=== PATIENT | female | born 1945 | race Caucasian/White ===

== ENCOUNTER 2019-01-03 18:55 | Emergency (ER) | payer MEDICARE ==
--- NOTE | 2019-01-03 19:09 | EDM.PDOC ---
ED HPI GENERAL MEDICAL PROBLEM - General Chief Complaint: Neuro Symptoms/Deficits Stated Complaint: [facility] Time Seen by Provider: 01/03/19 19:04 Source of Information: Reports: Patient History Limitations: Reports: No Limitations - History of Present Illness INITIAL COMMENTS - FREE TEXT/NARRATIVE: 73 year old female presents to the ED per ambulance. 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 No change in speech or Lt arm weakness. No headache or nausea or vomiting. No past history of cerebrovascular accident or TIA. She is known to be hypertensive but has has been off antihypertensive medication for about one year. No known heart arrhythmias and takes no medications that would thin her blood. No recent falls or closed head injuries. Denies any troubles swallowing. Denies any pain. When the patient's daughter arrived she was able to state that she was thrown around 1820 hrs. by the patient's boss indicating that she appeared to have facial weakness some drooling dysarthria and was staggering and bumping into things. This suggests that she will indeed was having a TIA/ CVA. He got her up walking the room she did very well and states things seem to be back to normal. 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 But she does not use a cane or Gatorade. She's not fallen recently. I will therefore proceed with CT angiogram of head and neck. Plan will be to place her on aspirin 325 mg at this time and Plavix 75 mg. Onset: Today Onset Date: 01/03/19 Onset Time: 17:30 Duration: Minutes: Location: Reports: Lower Extremity, Left (Acute onset of left lower extremity weakness making it difficult to walk without holding onto objects. Off balance leg felt heavy and like a piece of lead.) Quality: Reports: Other Severity: Moderate (Left leg weakness) Improves with: Reports: None Worsens with: Reports: None Context: Reports: Other. Denies: Activity, Exercise, Lifting, Sick Contact, Trauma Associated Symptoms: Reports: No Other Symptoms. Denies: Confusion, Chest Pain , Cough, cough w sputum, Diaphoresis, Fever/Chills, Headaches, Loss of Appetite , Malaise, Nausea/Vomiting, Rash, Seizure, Shortness of Breath, Syncope, Weakness Treatments TIE BINDER: Reports: Other (see below) (None. ) - Related Data Allergies Allergy/AdvReac Type Severity Reaction Status Date / Time No Known Allergies Allergy Verified 01/03/19 19:05 Home Meds: Home Meds Aspirin [Halfprin] 81 mg PO DAILY #100 tab.ec 01/03/19 [Rx] Clopidogrel [Plavix] 75 mg PO DAILY #21 tablet 01/03/19 [Rx] Rosuvastatin [Crestor] 10 mg PO DAILY #30 tab 01/03/19 [Rx] amLODIPine Besylate [Norvasc] 10 mg PO DAILY #30 tablet 01/03/19 [Rx] Past Medical History Cardiovascular History: Reports: Hypertension ([facility] antihypertensive medication about a year ago.) Endocrine/Metabolic History: Reports: Obesity/BMI 30+ Social & Family History - Living Situation & Occupation Occupation: Employed ED ROS GENERAL - Review of Systems Review Of Systems: See Below Constitutional: Denies: Fever, Chills, Malaise, Weakness, Fatigue, Decreased Appetite, Weight Loss HEENT: Reports: Other Respiratory: Reports: No Symptoms (Supposed were glasses but does not.) Cardiovascular: Reports: No Symptoms, Blood Pressure Problem. Denies: Chest Pain, Claudication Endocrine: Reports: No Symptoms (History of hypertension not on medication for the last 1 year.), Other GI/Abdominal: Reports: No Symptoms (Patient is not diabetic.) : Reports: No Symptoms, Frequency Musculoskeletal: Reports: Joint Pain Skin: Reports: No Symptoms Neurological: Reports: No Symptoms Psychiatric: Reports: No Symptoms Hematologic/Lymphatic: Reports: No Symptoms Immunologic: Reports: No Symptoms ED EXAM, NEURO - Physical Exam Exam: See Below Exam Limited By: No Limitations General Appearance: Alert, WD/WN, No Apparent Distress, Other (Vital signs show temperature 36.0 pulse 74 and sinus respiratory 16 BP 153/83. Pulse ox 95% on room air.) Eye Exam: Bilateral Eye: Normal Fundi, Normal Inspection, PERRL Throat/Mouth: Normal Inspection, Normal Lips, Normal Teeth, Normal Oropharynx, Other Head Exam: Atraumatic, Normocephalic (Uvula is in the midline) Neck: Normal Inspection, Supple, Non-Tender, Full Range of Motion. No: Carotid Bruit, Lymphadenopathy (L), Lymphadenopathy (R) Respiratory/Chest: No Respiratory Distress, Lungs Clear, Normal Breath Sounds, No Accessory Muscle Use Cardiovascular: Normal Peripheral Pulses, Regular Rate, Rhythm, No Edema, No Gallop, No Murmur, No Rub GI/Abdominal: Normal Bowel Sounds, Soft, Non-Tender, No Organomegaly, No Abnormal Bruit, No Mass, Pelvis Stable, Other (Mildly obese.) Neurological: Alert, Normal Mood/Affect, Normal Dorsiflexion, CN II-XII Intact, Normal Plantar Flexion, Normal Reflexes, No Motor/Sensory Deficits, Oriented x 3 , Difficulty Walking, Other (Cannot demonstrate any motor power or tone weakness in the left lower extremity at rest on the bed..) DTR: 0: Achilles (R), Achilles (L), 1+: Bicep (R), Bicep (L), Patella (R), Patella (L) Extremities: Normal Inspection, Normal Range of Motion, No Pedal Edema Psychiatric: Normal Affect, Normal Mood Skin Exam: Warm, Dry, Intact, Normal Color, No Rash EKG INTERPRETATION EKG Date: 01/03/19 Time: 19:13 Rhythm: NSR Rate (Beats/Min): 70 [place]: Normal P-Wave: Present QRS: Other (There is a near Q-wave V1 and V2. Consider possible old anteroseptal myocardial infarction. There is a nonspecific intraventricular conduction delay pattern. There are Q waves in leads 3 and aVF consider old inferior wall myocardial infarction.) ST-T: Other (There is T-wave flattening V6 leads 2 and aVR and T-wave inversion in 1 and aVL nonspecific findings.) EKG Interpretation Comments: Abnormal ECG Course - Vital Signs Last Recorded V/S: Last Vital Signs Temp 36.0 C 01/03/19 19:00 Pulse 74 01/03/19 19:00 Resp 16 01/03/19 19:00 BP 150/93 H 01/03/19 21:53 Pulse Ox 95 01/03/19 19:00 - Orders/Labs/Meds Orders: Active Orders 24 hr Category Date Time Status EKG Documentation Completion [RC] STAT Care 01/03/19 19:05 Active Ang Head [CT] Stat Exams 01/03/19 19:07 Taken Ang Neck [CT] Stat Exams 01/03/19 19:08 Taken Chest 1V Frontal [CR] Stat Exams 01/03/19 19:05 Taken Labs: Laboratory Tests 01/03/19 01/03/19 01/03/19 Range/Units 19:20 19:20 19:20 WBC 6.35 (3.98-10.04) K/mm3 RBC 5.44 H (3.98-5.22) M/mm3 Hgb 14.0 (11.2-15.7) gm/dl Hct 41.7 (34.1-44.9) % MCV 76.7 L (79.4-94.8) fl MCH 25.7 (25.6-32.2) pg MCHC 33.6 (32.2-35.5) g/dl RDW Std Deviation 43.5 (36.4-46.3) fL Plt Count 168 L (182-369) K/mm3 MPV 9.9 (9.4-12.3) fl Neut % (Auto) 55.6 (34.0-71.1) % Lymph % (Auto) 26.0 (19.3-51.7) % Baxter % (Auto) 14.5 H (4.7-12.5) % Eos % (Auto) 3.6 (0.7-5.8) Baso % (Auto) 0.3 (0.1-1.2) % Neut # (Auto) 3.53 (1.56-6.13) K/mm3 Lymph # (Auto) 1.65 (1.18-3.74) K/mm3 Baxter # (Auto) 0.92 H (0.24-0.36) K/mm3 Eos # (Auto) 0.23 (0.04-0.36) K/mm3 Baso # (Auto) 0.02 (0.01-0.08) K/mm3 PT 10.9 (9.7-12.0) SECONDS INR 1.00 APTT 27 (22-31) SECONDS Sodium 141 (136-145) mEq/L Potassium 4.3 (3.5-5.1) mEq/L Chloride 108 H (98-107) mEq/L Carbon Dioxide 28 (21-32) mEq/L Anion Gap 9.3 (5-15) BUN 23 H (7-18) mg/dL Creatinine 1.0 (0.55-1.02) mg/dL Est Cr Clr Drug Dosing 47.60 mL/min Estimated GFR (MDRD) 55 (>60) mL/min BUN/Creatinine Ratio 23.0 H (14-18) Glucose 103 (83-115) mg/dL Calcium 9.7 (8.5-10.1) mg/dL Magnesium 2.0 (1.8-2.4) mg/dl Total Bilirubin 0.5 (0.2-1.0) mg/dL AST 15 (15-37) U/L ALT 18 (14-59) U/L Alkaline Phosphatase 67 (46-116) U/L Troponin I < 0.017 (0.00-0.056) ng/mL C-Reactive Protein < 0.2 (<1.0) mg/dL NT-Pro-B Natriuret Pep (0-125) pg/mL Total Protein 6.4 (6.4-8.2) g/dl Albumin 3.4 (3.4-5.0) g/dl Globulin 3.0 gm/dL Albumin/Globulin Ratio 1.1 (1-2) 01/03/19 Range/Units 19:20 WBC (3.98-10.04) K/mm3 RBC (3.98-5.22) M/mm3 Hgb (11.2-15.7) gm/dl Hct (34.1-44.9) % MCV (79.4-94.8) fl MCH (25.6-32.2) pg MCHC (32.2-35.5) g/dl RDW Std Deviation (36.4-46.3) fL Plt Count (182-369) K/mm3 MPV (9.4-12.3) fl Neut % (Auto) (34.0-71.1) % Lymph % (Auto) (19.3-51.7) % Baxter % (Auto) (4.7-12.5) % Eos % (Auto) (0.7-5.8) Baso % (Auto) (0.1-1.2) % Neut # (Auto) (1.56-6.13) K/mm3 Lymph # (Auto) (1.18-3.74) K/mm3 Baxter # (Auto) (0.24-0.36) K/mm3 Eos # (Auto) (0.04-0.36) K/mm3 Baso # (Auto) (0.01-0.08) K/mm3 PT (9.7-12.0) SECONDS INR APTT (22-31) SECONDS Sodium (136-145) mEq/L Potassium (3.5-5.1) mEq/L Chloride (98-107) mEq/L Carbon Dioxide (21-32) mEq/L Anion Gap (5-15) BUN (7-18) mg/dL Creatinine (0.55-1.02) mg/dL Est Cr Clr Drug Dosing mL/min Estimated GFR (MDRD) (>60) mL/min BUN/Creatinine Ratio (14-18) Glucose (83-115) mg/dL Calcium (8.5-10.1) mg/dL Magnesium (1.8-2.4) mg/dl Total Bilirubin (0.2-1.0) mg/dL AST (15-37) U/L ALT (14-59) U/L Alkaline Phosphatase (46-116) U/L Troponin I (0.00-0.056) ng/mL C-Reactive Protein (<1.0) mg/dL NT-Pro-B Natriuret Pep 398 H (0-125) pg/mL Total Protein (6.4-8.2) g/dl Albumin (3.4-5.0) g/dl Globulin gm/dL Albumin/Globulin Ratio (1-2) Meds: Medications Discontinued Medications Generic Name Dose Route Start Last Admin Trade Name Freq PRN Reason Stop Dose Admin Amlodipine Besylate 5 mg 01/03/19 21:43 01/03/19 21:53 Norvasc PO 01/03/19 21:44 5 mg ONETIME ONE Administration Aspirin 324 mg 01/03/19 19:50 01/03/19 20:23 Aspirin PO 01/03/19 19:51 324 mg ONETIME ONE Administration Clopidogrel Bisulfate 75 mg 01/03/19 19:50 01/03/19 21:08 Plavix PO 01/03/19 19:51 75 mg ONETIME ONE Administration Sodium Chloride 1,000 mls @ 100 mls/hr 01/03/19 19:15 01/03/19 20:04 Normal Saline IV 100 mls/hr ASDIRECTED LUCILA Administration Sodium Chloride 100 mls @ 80 mls/hr 01/03/19 19:45 01/03/19 19:54 Normal Saline IV 80 mls/hr ASDIRECTED LUCILA Administration Iopamidol 100 ml 01/03/19 19:40 01/03/19 19:54 Isovue-370 (76%) IVPUSH 01/03/19 19:41 100 ml ONETIME ONE Administration Sodium Chloride 10 ml 01/03/19 19:40 01/03/19 19:54 Saline Flush FLUSH 10 ml ONETIME PRN Administration KEEP VEIN OPEN - Radiology Interpretation Free Text/Narrative:: 73-year-old female attends the ED with sudden onset of left leg weakness while at work. 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 States left leg became like a piece of wood and felt like it was heavy. Making it difficult to walk. She did not express any discomfort or weakness in her left arm or her speech. No associated headache nausea or vomiting. No recent falls or closed head injuries. Not on any blood thinners. CT was done as she was a stroke alert. CT exam reveals mild degenerative changes in the basal ganglia compatible with small vessel ischemic change but there is no intracranial bleeding or mass effect. Diminished density is noted within the periventricular and subcortical white matter which is compatible with small vessel demyelination changes. Several old lacunar infarcts are seen within the basal ganglia. Neuro exam is grossly normal. The only abnormality is appreciated when she is up trying to walk. Plan we will proceed with CT angiogram of head and neck. - Re-Assessments/Exams Free Text/Narrative Re-Assessment/Exam: 01/03/19 20:58 Labs reveal a normal white count at 6.35 with automated neutrophil count of 55.6. Hemoglobin is 14.0 with hematocrit of 41.7. MCV is a little bit on the low side at 76.7 suggesting iron deficiency which needs further investigation. Platelet count 268,000. PT is 10.9 with an INR 1.00. PTT is 27. Sodium was 141 with a potassium of 4.3. Chloride is 108 with a bicarbonate of 20. Anion gap is normal at 9.3. The right is slightly elevated at 23 with a creatinine of 1.0. GFR is greater than 55. Glucose 103 with a calcium of 9.7. Magnesium was 2.0. Liver function is normal. Troponin I is less than 0.017. C-reactive protein less than 0.2. BNP is slightly elevated at 398. Total protein is 6.4 with an albumin fraction of 3.4. CT angiogram of the neck reveals the right common carotid artery be unremarkable with no significant stenosis dissection or occlusion. The right internal carotid artery shows calcified plaque at the origin of the right internal carotid artery producing about 25% diameter stenosis. An additional calcified plaque 5 mm downstream from the origin produces a 50% diameter stenosis. The right external carotid artery is unremarkable with no occlusion or stenosis. Right vertebral artery is unremarkable with no stenosis dissection or occlusion. On the left side the left common carotid arteries unremarkable with no stenosis dissection or occlusion. Left internal carotid artery shows calcified plaque the origin of the left internal carotid artery producing about a 30% diameter stenosis. The vessel downstream from this point is widely patent and free of dissection aneurysm or stenosis. Left external carotid arteries unremarkable with no occlusion stenosis. Left vertebral arteries unremarkable with no stenosis and stenosis or dissection or occlusion. The neck shows moderate cervical degenerative disc disease and spondylosis. ET angiogram of the head reveals the right internal carotid artery to be unremarkable. The intracranial segment is patent with no significant stenosis or aneurysm. The right anterior cerebral arteries unremarkable with no occlusion or significant stenosis or aneurysm. Right middle cerebral artery there is mild atheromatous? Irregularity of the M1 segment of the right middle cerebral artery with a moderate area of approximately 50% diameter stenosis at its origin. The right posterior cerebral artery is unremarkable with no occlusion or significant stenosis the right vertebral artery circumflex artery is also within normal limits showing no aneurysm or stenosis. On the left side left internal carotid artery unremarkable intracranial segment is patent with no significant stenosis or aneurysm. The left anterior cerebral artery there is a high-grade stenosis of the left anterior cerebral artery 5 cm downstream from its origin. The vessel is not occluded. The upstream and downstream segments appear widely patent. The left middle cerebral artery demonstrates atheromatous irregularity of the M1 segment with significant stenosis. The remainder the vessel appears unremarkable. Left posterior cerebral arteries unremarkable with no occlusion or significant stenosis or aneurysm. Left vertebral artery is unremarkable. The basilar artery is unremarkable with no occlusion or stenosis. There is bilateral patent posterior communicating arteries. 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 Moderate stenosis of the right middle cerebral artery at its origin with no sign of occlusion. I therefore did speak with Dr. Alegre--emissions inspector neurologist at [facility] and he agreed with my course of treatment if the patient is asymptomatic which she is on repeat examinations up walking in the bragg and I reevaluated the strength in her left upper extremity and lower extremity I could find no neurological deficit. Therefore treated with baby aspirin and Plavix 75 mg daily for the next 3 weeks I also started her on Crestor 10 mg daily and because her blood pressure is elevated around 155 -165 systolic placed her on Norvasc 10 mg daily. I gave her 5 mg in the ED. She' ll be going home in the care of her granddaughter. They will return if any further problems occur. Departure - Departure Time of Disposition: 21:43 Disposition: Home, Self-Care 01 Condition: Fair Clinical Impression: TIA involving right internal carotid artery, Uncontrolled hypertension - Discharge Information *PRESCRIPTION DRUG MONITORING PROGRAM REVIEWED*: Not Applicable *COPY OF PRESCRIPTION DRUG MONITORING REPORT IN PATIENT TRISHA: Not Applicable Prescriptions: amLODIPine Besylate [Norvasc] 10 mg PO DAILY #30 tablet Aspirin [Halfprin] 81 mg PO DAILY #100 tab.ec Clopidogrel [Plavix] 75 mg PO DAILY #21 tablet Rosuvastatin [Crestor] 10 mg PO DAILY #30 tab Instructions: Transient Ischemic Attack, [id number] Referrals: PCP,Unknown [Primary Care Provider] - Forms: ED Department Discharge, ED Return to Work/School Form Additional Instructions: Evaluation the emergency room today in regards to signs and symptoms of stroke. Apparently her dealership manager appreciated that you have right facial drooping some dysarthria or impaired speech or trouble speaking. Some left arm and left leg weakness that occurred suddenly while at work at about 1730 hrs. tonight. She did turn called her daughter who in turn picked you up and brought to the hospital for evaluation. Initial evaluation the emergency room revealed no obvious neurological deficit. Even walking at the bedside was pretty normal. CT scan done immediately of your head per stroke protocol was negative for any intracranial bleeding or obvious mass effect or tumor. We therefore proceeded with CT angiogram which is where we put dye in the arteries of your head and neck to look for any blockages. Are normal blockages in the arteries supplying your brain and neck appropriate for your age but nothing that was occlusive or causing lack of blood supply to the brain at this time. Therefore you have suffered a transient ischemic attack most likely from debris or cholesterol plaque breaking off from inside of the artery in your neck on the right side causing her current symptom complex. Symptoms seem to have resolved for the most part and therefore treatment is baby aspirin once daily for the rest of your life. Plavix 75 mg once daily for 21 days with the next tablet twice a day suppertime tomorrow. Postop was provided in the ED. This is to allow the artery to heal on the inside for the next 3 weeks. And prevent a major stroke from occurring. Blood pressure does remain mild to moderately elevated and therefore you do need blood pressure control as this is the major cause of stroke. Suggest Norvasc 10 mg once daily. This can be taken at a time of the day. Also medication Crestor 10 mils grams once daily to lower your cholesterol and help prevent hardening of the arteries which causes further stroke recurrences. Suggest follow-up with Dr. Faith client delivery specialist here in our hospital. Works on the third floor of the [place] [facility] the [facility]. Please make an appointment to see him within the next 10 days. Please phone [phone] to arrange an appointment. Return to the ED if any similar problems occur again Off work for the next 2 days due to TIA as it will make you feel very tired for the next couple of days. - My Orders Last 24 Hours: My Active Orders 01/03/19 19:05 EKG Documentation Completion [RC] STAT Chest 1V Frontal [CR] Stat 01/03/19 19:07 Ang Head [CT] Stat 01/03/19 19:08 Ang Neck [CT] Stat - Assessment/Plan Last 24 Hours: My Active Orders 01/03/19 19:05 EKG Documentation Completion [RC] STAT Chest 1V Frontal [CR] Stat 01/03/19 19:07 Ang Head [CT] Stat 01/03/19 19:08 Ang Neck [CT] Stat
[2019-01-03] MEDS ORDERED: Sodium Chloride 0.9% 1,000 ML IV SCH (19:15)
--- NOTE | 2019-01-03 19:17 | CT ---
Head CT Technique: Multiple axial sections through the brain were obtained. Intravenous contrast was not utilized. Comparison: No previous intracranial imaging is available. Findings: Ventricles along with basal cisterns and sulci over convexities are mildly prominent. Diminished density is noted within the periventricular and subcortical white matter which is compatible with small vessel ischemic demyelination change. Several old lacunar infarcts are seen within the basal ganglia. No other abnormal parenchymal densities are seen. No evidence of intracranial hemorrhage. No midline shift or mass effect is seen. Bone window settings were reviewed which shows the visualized mastoid sinuses to appear clear. Paranasal sinuses that are seen appear without acute abnormality. No acute calvarial finding is seen. Impression: 1. Senescent change as noted above. Nothing acute is appreciated on noncontrast head CT exam. Diagnostic code #2
[2019-01-03] MEDS ORDERED: Iopamidol 755 Mg/ML 100 ML Bottle IVPUSH ONE (19:40)
[2019-01-03] MEDS ORDERED: Sodium Chloride 0.9% 10 ML Syringe FLUSH PRN (19:40)
[2019-01-03] MEDS ORDERED: Sodium Chloride 0.9% 100 ML IV SCH (19:45)
[2019-01-03] MEDS ORDERED: Clopidogrel 75 MG Tab PO ONE (19:50)
[2019-01-03] MEDS ORDERED: Aspirin 81 MG Tab.Chew PO ONE (19:50)
[2019-01-03] MEDS ORDERED: amLODIPine 5 MG Tab PO ONE (21:43)
--- NOTE | 2019-01-04 06:54 | CR ---
Chest: Portable view of the chest was obtained. Comparison: No prior chest imaging. Heart size is slightly prominent. Tortuous thoracic aorta is seen. Lungs are clear with no acute parenchymal change. Bony structures are grossly intact. Impression: 1. Nothing acute is seen on portable chest x-ray. Diagnostic code #2
--- NOTE | 2019-01-04 06:59 | CT ---
CT angiogram of neck Technique: Multiple axial sections through the neck were obtained. Intravenous contrast was utilized. Study performed as a CT neck angiogram protocol. Findings: Both vertebral arteries are patent into the basilar artery without focal stenosis or dissection. Common carotid arteries are tortuous and show atherosclerotic irregularity without focal stenosis. Atherosclerotic change most prominent within the carotid bulb and origin of the internal carotid arteries. Slight narrowing of the left ICA origin is seen which is felt to be of no hemodynamic significant consequence. Minimal areas of stenosis are also seen within the right internal carotid artery which are not hemodynamically significant. Internal carotid arteries are otherwise patent into the middle and anterior cerebral arteries. Impression: 1. Mild areas of stenosis as noted above and atherosclerotic irregularity. These areas of stenosis are felt not to be hemodynamically significant. Diagnostic code #2 I agree with preliminary report from [facility], finalized on 01/03/19, 9:44 PM Central Time
--- NOTE | 2019-01-04 06:59 | CT ---
CT angiogram of brain Technique: Multiple axial sections through the brain were obtained. Intravenous contrast was utilized. Study performed as a CT angiogram protocol. Findings: Focal stenosis appears to be present within the distal aspect of the anterior left cerebral artery. Anterior cerebral arteries are otherwise within normal limits. Mild stenosis noted within the mid right middle cerebral artery. Atherosclerotic irregularity is noted within the left middle cerebral artery. Focal area of stenosis noted within the proximal right posterior cerebral artery. Diffuse atherosclerotic irregularity seen within the left posterior cerebral artery. Other intracranial arteries that are seen show no definite stenosis. No focal areas of occlusion are seen. No discrete aneurysm is appreciated. Impression: 1. Atherosclerotic irregularity and focal areas of stenosis within the left anterior cerebral artery, mid right middle cerebral artery and proximal right posterior cerebral artery. Diagnostic code #3 I agree with preliminary report from [facility], finalized on 01/03/19, 9:54 PM Central Time
== END 2019-01-03 22:00 | disposition home or self-care (01) ==
LOC: JD.ED 18:55
DX: I65.21 Occlusion and stenosis of right carotid artery (principal); I10 Essential (primary) hypertension; E66.9 Obesity, unspecified; Z68.32 Body mass index [BMI] 32.0-32.9, adult; Z79.82 Long term (current) use of aspirin; Z79.02 Long term (current) use of antithrombotics/antiplatelets
CPT/HCPCS: 36415; 70450; 70496; 70498; 71045; 80053; 82465; 83718; 83721; 83735; 83880; 84484; 85025; 85610; 85730; 86140; 93005; 96360; 99285; A9270; J7030; J7040; Q9967; 93010

== ENCOUNTER 2019-01-04 00:25 | Emergency (ER) | payer MEDICARE ==
--- NOTE | 2019-01-04 00:34 | EDM.PDOC ---
ED HPI GENERAL MEDICAL PROBLEM - General Chief Complaint: Neuro Symptoms/Deficits Stated Complaint: [facility] Time Seen by Provider: 01/04/19 00:29 Source of Information: Reports: Patient, EMS History Limitations: Reports: No Limitations - History of Present Illness INITIAL COMMENTS - FREE TEXT/NARRATIVE: 73-year-old female returns to the ED after I discharged her home earlier this evening after she suffered an apparent TIA while in the workplace. Patient had developed left-sided weakness and perhaps right-sided facial weakness and was bumping into things and off balance while in the workplace noted by her business analytics manager around 1800 hrs. Patient states symptoms started about 1730 hrs. suddenly. 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 The business analytics manager appreciated her deficits and called her granddaughter to come pick her up and she did show up in the ED around 1900 hrs. At that time I could not document any neurological deficit. Even standing and walking at the bedside she showed no sign of weakness in her lower extremity which was her chief complaint. Her speech was normal was noted that no dysarthria and coronary nerves II through XII are normal. Immediate CT of the head was done as part of a stroke alert. It reveals several old lacunar infarcts in the basal ganglia but no intracranial bleeding or mass effect. I then went ahead and did perform a CT angiogram of her head and neck. Associated with no critical stenosis or obstruction of any of the arteries in her head or neck. It did reveal mild left thrombosis irregularity of the M1 segment of the right middle cerebral artery with a moderate area of approximately 50% diameter stenosis at its origin. It revealed a high-grade stenosis of the left anterior cerebral artery 5 cm downstream from its origin the remainder the vessels patent and enhances normally. There was no obvious obstruction at this level. She was monitored in the ED for another couple of hours. Her blood pressure did remain persistently high with a systolic of 155- 165/85-95. Patient used to take blood pressure medication was been off for the last year. Smoking over 50 years ago. We tested her and walked her in the hallway on 3 different occasions and she seemed to have no significant deficit. I had spoke with Dr. Alegre on-call neurologist at [facility] in [place] and he agreed with treatment for TIA with baby aspirin and she had received 324 mg chewed and Plavix 75 mg by mouth in the ED. left the ED at 2200 hrs. last evening. Apparently she got up to use the toilet after going to bed tonight and missed the toilet falling to the floor. It is quite apparent that she is ignoring the left side of her body. She is not showing any significant cranial nerve abnormalities but her speech is dysarthric. She denies any headache nausea or vomiting. A definite weakness of her left upper extremity and left lower extremity with inability to barely lift the the left leg off the gurney i.e. grade 1 out of 5 motor power and tone in the leg and 3 out of 5 in the left upper extremity. She therefore is appears to gone onto a completed CVA. The symptoms seem to be waxing and waning or so-called stuttering stroke. Plan will be repeat CT of her head him emergently to see if there is any intracranial change or bleeding. This will decide whether thrombolytics are required or heparinization. I would ask discuss case with on-call neurology in [place] in [place]. Onset: Today Onset Date: 01/04/19 Onset Time: 00:00 Duration: Minutes: Location: Reports: Upper Extremity, Left, Lower Extremity, Left (Weakness left lower extremity left upper extremity), Other (She is ignoring the left side of her body.) Quality: Reports: Other (Symptoms are now much worse than they were when I examined her 5hours previously.) Severity: Moderate Improves with: Reports: None Worsens with: Reports: None Context: Reports: Other (Strokelike symptoms.). Denies: Activity, Exercise, Lifting, Sick Contact Associated Symptoms: Reports: Other (Mild dysarthria.). Denies: Confusion, Chest Pain, cough w sputum, Diaphoresis, Nausea/Vomiting - Related Data Allergies Allergy/AdvReac Type Severity Reaction Status Date / Time No Known Allergies Allergy Verified 01/04/19 00:26 Home Meds: Home Meds Aspirin [Halfprin] 81 mg PO DAILY #100 tab.ec 01/03/19 [Rx] Clopidogrel [Plavix] 75 mg PO DAILY #21 tablet 01/03/19 [Rx] Rosuvastatin [Crestor] 10 mg PO DAILY #30 tab 01/03/19 [Rx] amLODIPine Besylate [Norvasc] 10 mg PO DAILY #30 tablet 01/03/19 [Rx] Past Medical History HEENT History: Reports: Impaired Vision Cardiovascular History: Reports: Hypertension ([facility] antihypertensive medication about a year ago.) Respiratory History: Reports: Pneumonia, Recurrent Gastrointestinal History: Reports: None Genitourinary History: Reports: None TRANSIT PLANNER History: Reports: None Musculoskeletal History: Reports: Back Pain, Chronic Neurological History: Reports: Migraines Psychiatric History: Reports: None Endocrine/Metabolic History: Reports: Obesity/BMI 30+ Hematologic History: Reports: None Immunologic History: Reports: None Oncologic (Cancer) History: Reports: None Dermatologic History: Reports: None - Infectious Disease History Infectious Disease History: Reports: None - Past Surgical History Head Surgeries/Procedures: Reports: None HEENT Surgical History: Reports: Oral Surgery, Tonsillectomy Social & Family History - Caffeine Use Caffeine Use: Reports: Coffee, Soda - Living Situation & Occupation Occupation: Employed ED ROS GENERAL - Review of Systems Review Of Systems: See Below Constitutional: Reports: Malaise, Weakness (Left upper extremity left lower extremity with mild dysarthria.). Denies: Fever, Chills HEENT: Reports: Other (Mildly dysarthric.) Respiratory: Reports: No Symptoms Cardiovascular: Reports: No Symptoms Endocrine: Reports: No Symptoms GI/Abdominal: Reports: No Symptoms : Reports: No Symptoms Skin: Reports: No Symptoms Neurological: Reports: Weakness (Left arm weakness left leg weakness with mild dysarthria. I.e. left hemiparesis due to right) Psychiatric: Reports: No Symptoms ( middle cerebral artery occlusion.) Hematologic/Lymphatic: Reports: No Symptoms Immunologic: Reports: No Symptoms ED EXAM, NEURO - Physical Exam Exam: See Below Exam Limited By: Other General Appearance: Alert (Speech is mildly dysarthric.), WD/WN, Mild Distress, Other (She is ignoring the left side of her body looking only to the right side. ) Eye Exam: Bilateral Eye: Normal Inspection (No gaze palsy.) Throat/Mouth: Normal Inspection, Normal Lips, Normal Oropharynx, Other (Normal movement of her tongue.) Head Exam: Atraumatic, Normocephalic Neck: Normal Inspection, Supple, Non-Tender, Full Range of Motion. No: Carotid Bruit, Lymphadenopathy (L), Lymphadenopathy (R) Respiratory/Chest: No Respiratory Distress, Lungs Clear, Normal Breath Sounds, No Accessory Muscle Use Cardiovascular: Normal Peripheral Pulses, Regular Rate, Rhythm, No Edema, No Gallop, No Murmur, No Rub GI/Abdominal: Normal Bowel Sounds, Soft, Non-Tender, No Organomegaly, No Abnormal Bruit, No Mass, Pelvis Stable, Other (Moderately obese.) Neurological: Alert, CN II-XII Intact, Oriented x 3, Babinski (Equivocal.), Other (Patient has significant weakness of the left lower extremity barely able to lift it off the gurney i.e. rated as 1 out of 5 motor power tone. Reflexes are absent in this extremity. She has grade 3 out of 5 motor power and tone in her upper extremity with good folder hand strength weaker than it was prior and weakness in the biceps and flexors. He is unable to perform finger to nose exam on the left side now whereas before she can do this easily. She can also not perform rapid alternating movements on the left side.) DTR: 0: Bicep (L), Patella (L), Achilles (R), Achilles (L), 1+: Bicep (R), Patella (R) Extremities: Normal Inspection, Normal Range of Motion, Other (Patient has evidence of osteophytic changes in both knees.) Psychiatric: Normal Affect, Normal Mood, Other Skin Exam: Warm, Dry (Speech is mildly dysarthric.), Intact, Normal Color, No Rash Course - Vital Signs Last Recorded V/S: Last Vital Signs Temp 36.9 C 01/04/19 00:26 Pulse 72 01/04/19 00:26 Resp 16 01/04/19 00:26 BP 144/79 H 01/04/19 00:26 Pulse Ox 95 01/04/19 00:26 - Orders/Labs/Meds Orders: Active Orders 24 hr Category Date Time Status Head wo Cont [CT] Stat Exams 01/04/19 00:28 Taken Sodium Chloride 0.9% [Normal Saline] 1,000 ml Med 01/04/19 00:45 Active IV ASDIRECTED Medication Orders Sodium Chloride (Normal Saline) 1,000 mls @ 100 mls/hr IV ASDIRECTED LUCILA Last Admin: 01/04/19 00:49 Dose: 100 mls/hr Meds: Medications Generic Name Dose Route Start Last Admin Trade Name Freq PRN Reason Stop Dose Admin Sodium Chloride 1,000 mls @ 100 mls/hr 01/04/19 00:45 01/04/19 00:49 Normal Saline IV 100 mls/hr ASDIRECTED LUCILA Administration Discontinued Medications Generic Name Dose Route Start Last Admin Trade Name Jovany PRN Reason Stop Dose Admin Alteplase, Recombinant Confirm 01/04/19 01:08 01/04/19 01:17 Activase Administered 01/04/19 01:09 Not Given Dose 100 mg .ROUTE .[employer] Alteplase, Recombinant 81.6462 mg 01/04/19 01:16 01/04/19 01:24 Activase 0.9 mg/kg (81.6462 mg) 01/04/19 01:17 81.6462 mg IV Administration .BOLUS ONE - Radiology Interpretation Free Text/Narrative:: 73-year-old female returns to the ED after getting up from bed tonight to get to the bathroom. She states she missed the toilet and fell to the floor and was unable to get up. She has definite left-sided arm and leg weakness much worse than when I have reviewed her This 73-year-old female returns to the ED after discharge from the ED 3 hours ago. She had presented at 1900 hrs. with reported dysarthria right facial weakness and trouble walking due to left leg not working well. Complete neuro exam at that time could not identify any obvious deficits and she could stand by the bedside and walk without any problem. The CT of her brain revealed some old lacunar infarcts in the basal ganglia but no sign of intracranial bleeding or mass effect. She was mildly hypertensive as she's been off her antihypertensive medications for over a year. Appears that she is starting to show signs of a completed stroke versus TIA. She had had CT angiogram of her head and neck which showed a stenotic area in the right middle cerebral artery but no occlusion. Plan repeat CT of the head to make sure there is no intracranial bleeding and then discuss with neurologist about proceeding with thrombolytics versus heparin therapy. Current NIH scale is 11. - Re-Assessments/Exams Free Text/Narrative Re-Assessment/Exam: 01/04/19 01:00: Spoke to the patient and her granddaughter about the risks of thrombolytic therapy there willing to take this risk. She has no contraindications other than she did receive Plavix and aspirin 6 hours prior. There is an increased risk of potential bleeding into the brain. However the benefits are felt to be better than the risk. We'll proceed with 81 mg total dose of alteplase IV given 8 mg IV bolus and 73 mg IV over the ensuing hour. This is per stroke protocol. I spoke with Dr. Stroud-- sheet rocker at [facility] and he is accepted care to the intensive care unit. Tentatively the patient be transported to that facility per ground ambulance. 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 A Snider catheter has been placed to your metric drainage. Repeat neurologic exam reveals she is able to lift her leg up off the gurney without any problem whatsoever. Her motor power and tone is now 4 out of 5 in the left lower extremity and 5 out of 5 in the left upper extremity. She no longer has a ignorance of her left side she is alert oriented with no dysarthria. Denies any headache. - My Orders Last 24 Hours: My Active Orders 01/04/19 00:28 Head wo Cont [CT] Stat 01/04/19 00:45 Sodium Chloride 0.9% [Normal Saline] 1,000 ml IV ASDIRECTED - Assessment/Plan Last 24 Hours: My Active Orders 01/04/19 00:28 Head wo Cont [CT] Stat 01/04/19 00:45 Sodium Chloride 0.9% [Normal Saline] 1,000 ml IV ASDIRECTED
[2019-01-04] MEDS ORDERED: Sodium Chloride 0.9% 1,000 ML IV SCH (00:45)
[2019-01-04] MEDS ORDERED: Tenecteplase 50 MG Kit IV STA (01:04)
--- NOTE | 2019-01-04 07:08 | CT ---
Head CT Technique: Multiple axial sections through the brain were obtained. Intravenous contrast was not utilized. Comparison: Prior head CT exam of 01/03/19. Findings: Ventricles along with basal cisterns and sulci over the convexities are mildly prominent. Diminished density is noted within portions of the periventricular and subcortical white matter which is compatible with small vessel ischemic demyelination change. Several old lacunar infarcts are noted within the basal ganglia. No other abnormal parenchymal densities are seen. No evidence of intracranial hemorrhage. No midline shift or mass effect is seen. Bone window settings were reviewed which show no acute calvarial abnormality. Visualized mastoid and paranasal sinuses show nothing acute. Impression: 1. Senescent change as noted above. 2. Nothing acute is definitely appreciated. MRI study with diffusion could be considered to further evaluate for ischemic event if clinically indicated. Diagnostic code #2 I agree with preliminary report from [facility], finalized on 01/04/19, 1:56 AM Central Time
== END 2019-01-04 02:00 ==
LOC: JD.ED 00:25
DX: I63.311 Cerebral infarction due to thrombosis of right middle cerebral artery (principal); I69.322 Dysarthria following cerebral infarction; I10 Essential (primary) hypertension; Z79.82 Long term (current) use of aspirin; Z79.01 Long term (current) use of anticoagulants; Z79.899 Other long term (current) drug therapy
CPT/HCPCS: 51702; 70450; 96361; 96374; 99285; J2997; J7040

== ENCOUNTER 2020-05-13 18:32 | Emergency (ER) | payer MEDICARE ==
--- NOTE | 2020-05-13 19:21 | EDM.PDOC ---
ED HPI GENERAL MEDICAL PROBLEM - General Chief Complaint: Upper Extremity Injury/Pain Stated Complaint: DISLOCATED LEFT SHOULDER Time Seen by Provider: 05/13/20 19:01 Source of Information: Reports: Patient History Limitations: Reports: No Limitations - History of Present Illness INITIAL COMMENTS - FREE TEXT/NARRATIVE: Mrs. Weiss is a very pleasant 75-year-old woman who now presents to the ED with a possible left shoulder dislocation. She states that she tripped on her carpet at home around 17:30, falling onto an outstretched left upper extremity. She states that her pain is not that severe, but she is unable to move her left shoulder, and that her symptoms are the same as when she dislocated her shoulder once previously, in 2017 or 2018. She denies any other injuries besides the shoulder. The patient did not take any [id number] or home remedies prior to coming to the ED. Her last oral intake was around 11:30 or noon today. Here in the ED, the patient's initial BP is found to be elevated at 167/97, otherwise, she is hemodynamically stable, afebrile, saturating 99% on room air. Prior to this evening's shoulder injury, the patient denies having a recent fever, chills, sore throat, ear pain, nasal or sinus congestion, cough, dyspnea, chest pain, palpitations, nausea, vomiting, constipation, diarrhea, abdominal pain, urinary symptoms, recent weight gain or weight loss, recent bloody bowel movements or black bowel movements, recent joint aches, headaches, or rashes. The patient's PCP is Dr. Beatriz Alejandra. She has not received an influenza vaccine this season, and declined an offer to get one here in the ED. Left Shoulder Pain Score (Numeric/FACES): 9 - Related Data Allergies Allergy/AdvReac Type Severity Reaction Status Date / Time No Known Allergies Allergy Verified 05/13/20 18:46 Home Meds: Home Meds Aspirin [Halfprin] 81 mg PO DAILY #100 tab.ec 01/03/19 [Rx] Clopidogrel [Plavix] 75 mg PO DAILY #21 tablet 01/03/19 [Rx] Rosuvastatin [Crestor] 10 mg PO DAILY #30 tab 01/03/19 [Rx] amLODIPine Besylate [Norvasc] 10 mg PO DAILY #30 tablet 01/03/19 [Rx] Past Medical History HEENT History: Reports: Impaired Vision Cardiovascular History: Reports: Hypertension Genitourinary History: Reports: Urinary Incontinence (stress incontinence) Neurological History: Reports: TIA (2019) Endocrine/Metabolic History: Reports: Obesity/BMI 30+ - Past Surgical History HEENT Surgical History: Reports: Adenoidectomy, Oral Surgery (dental extractions), Tonsillectomy Female Surgical History: Reports: D&C (x 1) Social & Family History - Tobacco Use Tobacco Use Status *Q: Never Tobacco User - Caffeine Use Caffeine Use: Reports: None - Alcohol Use Alcohol Use History: Yes Alcohol Use Frequency: Rarely - Recreational Drug Use Recreational Drug Use: No - Living Situation & Occupation Living situation: Reports: , Alone Occupation: Employed ([employer]) Review of Systems - Review of Systems Review Of Systems: Comprehensive ROS is negative, except as noted in HPI. ED EXAM, GENERAL - Physical Exam Exam: See Below Exam Limited By: No Limitations General Appearance: Alert, WD/WN, No Apparent Distress Extremities: Other (The left shoulder is somewhat squared off compared to the right. No prominent acromion seen or felt on the left, when compared to the right, however, there is loss of a palpable acromion posteriorly. The patient denies tingling or numbness to the left upper extremity, specifically, to the deltoid region; neurovascular status of the left upper extremity is intact.) Course - Vital Signs Last Recorded V/S: Last Vital Signs Temp 36.6 C 05/13/20 18:44 Pulse 73 05/13/20 18:44 Resp 16 05/13/20 18:44 BP 167/97 H 05/13/20 18:44 Pulse Ox 99 05/13/20 18:44 - Orders/Labs/Meds Orders: Active Orders 24 hr Category Date Time Status Shoulder Comp Lt [CR] Stat Exams 05/13/20 19:14 Taken Shoulder Comp Lt [CR] Stat Exams 05/13/20 21:07 Taken Sodium Chloride 0.9% [Normal Saline] 1,000 ml Med 05/13/20 20:30 Active IV ASDIRECTED Medication Orders Sodium Chloride (Normal Saline) 1,000 mls @ 150 mls/hr IV ASDIRECTED LUCILA Last Admin: 05/13/20 20:28 Dose: 150 mls/hr Documented by: [id number] Meds: Medications Generic Name Dose Route Start Last Admin Trade Name Jovany PRN Reason Stop Dose Admin Sodium Chloride 1,000 mls @ 150 mls/hr 05/13/20 20:30 05/13/20 20:28 Normal Saline IV 150 mls/hr ASDIRECTED LUCILA Administration Discontinued Medications Generic Name Dose Route Start Last Admin Trade Name Jovany PRN Reason Stop Dose Admin Hydromorphone HCl 1 mg 05/13/20 20:18 05/13/20 20:29 Dilaudid IVPUSH 05/13/20 20:19 1 mg ONETIME ONE Administration Midazolam HCl Confirm 05/13/20 20:56 Versed 1 Mg/Ml Administered 05/13/20 20:57 Dose 2 mg .ROUTE .STK-MED ONE Ondansetron HCl 4 mg 05/13/20 20:18 05/13/20 20:29 Zofran IVPUSH 05/13/20 20:19 4 mg ONETIME ONE Administration Propofol Confirm 05/13/20 20:56 Diprivan 20 Ml Administered 05/13/20 20:57 Dose 200 mg .ROUTE .STK-MED ONE - Re-Assessments/Exams Free Text/Narrative Re-Assessment/Exam: 05/13/20 19:17 As above, the patient likely dislocated her left shoulder. I have ordered x- rays to evaluate. If confirmed, Vanessa JANE will place an IV and we will call anesthesia. The patient declined an offer for pain medication at this time. 05/13/20 20:18 3-view radiographs of the left shoulder confirms an anterior dislocation. No Hill-Sachs fracture identified. Formal read per the Radiologist pending. 05/13/20 21:06 The patient was given conscious sedation per the ACTIONSCRIPT DEVELOPER - please see his note for specifics. Once the patient was adequately anesthetized, the patient's left shoulder was reduced using the traction/countertraction method, without difficulty. The patient tolerated the procedure well. Vanessa JANE will place the patient's left upper extremity into a sling and swath. I will order a post- reduction x-ray of the shoulder. 05/13/20 21:30 Post-reduction 2-view radiographs of the left shoulder appear to demonstrate complete reduction with no Hill-Sachs deformity noted. Formal read per the Radiologist pending. The patient will be discharged home once she is fully awake. 05/13/20 22:34 The patient is now well awake and ready to go home. Departure - Departure Time of Disposition: 22:34 Disposition: Home, Self-Care 01 Condition: Good Clinical Impression: Dislocation of left shoulder joint - Discharge Information *PRESCRIPTION DRUG MONITORING PROGRAM REVIEWED*: Not Applicable *COPY OF PRESCRIPTION DRUG MONITORING REPORT IN PATIENT TRISHA: Not Applicable Referrals: Beatriz Alejandra MD [Primary Care Provider] - Shahab Rayo MD [Physician] - Forms: ED Department Discharge Additional Instructions: You were seen in the emergency room after tripping, falling, and dislocating your left shoulder. Your shoulder was reduced (put back into place) under conscious sedation in the ER. Your left arm has been placed into a sling and swath. We recommend that you keep your left arm in this for the next 2 to 3 days. You may take [id number] Tylenol or ibuprofen as needed for discomfort. You may also ice your left shoulder. We recommend that you contact the office of the Orthopedic Surgeon Dr. Shahab Rayo first thing tomorrow morning, to arrange to be seen this week. If any other problems, please do not hesitate to return to the ER. Sepsis Event Note (ED) - Evaluation Sepsis Screening Result: No Definite Risk - Focused Exam Vital Signs: Vital Signs Temp Pulse Resp BP Pulse Ox 05/13/20 18:44 36.6 C 73 16 167/97 H 99 - My Orders Last 24 Hours: My Active Orders 05/13/20 19:14 Shoulder Comp Lt [CR] Stat 05/13/20 20:30 Sodium Chloride 0.9% [Normal Saline] 1,000 ml IV ASDIRECTED 05/13/20 21:07 Shoulder Comp Lt [CR] Stat - Assessment/Plan Last 24 Hours: My Active Orders 05/13/20 19:14 Shoulder Comp Lt [CR] Stat 05/13/20 20:30 Sodium Chloride 0.9% [Normal Saline] 1,000 ml IV ASDIRECTED 05/13/20 21:07 Shoulder Comp Lt [CR] Stat
[2020-05-13] MEDS ORDERED: HYDROmorphone 1 MG/ML Syringe IVPUSH ONE (20:18)
[2020-05-13] MEDS ORDERED: Ondansetron 4 MG/2 ML SDV IVPUSH ONE (20:18)
[2020-05-13] MEDS ORDERED: Sodium Chloride 0.9% 1,000 ML IV SCH (20:30)
--- NOTE | 2020-05-13 20:52 | PCM.PREANE ---
Preanesthetic Assessment - Anesthesia/Transfusion/Family Hx Anesthesia History: Prior Anesthesia Without Reaction Family History of Anesthesia Reaction: No Transfusion History: No Prior Transfusion(s) - Review of Systems General: No Symptoms Pulmonary: No Symptoms Cardiovascular: No Symptoms Gastrointestinal: No Symptoms Neurological: Other (TIA) Other: Reports: Neck Pain - Physical Assessment NPO Status Date: 05/13/20 NPO Status Time: 13:00 Vital Signs: Last Vital Signs Temp 36.6 C 05/13/20 18:44 Pulse 73 05/13/20 18:44 Resp 16 05/13/20 18:44 BP 167/97 H 05/13/20 18:44 Pulse Ox 99 05/13/20 18:44 Height: 1.65 m Weight: 94.665 kg ASA Class: 2 Mental Status: Alert & Oriented x3 Airway Class: Mallampati = 1 Dentition: Reports: [place](s) Thyro-Mental Finger Breadths: 3 Mouth Opening Finger Breadths: 3 ROM/Head Extension: Full Lungs: Clear to Auscultation, Normal Respiratory Effort Cardiovascular: Regular Rate, Regular Rhythm - Allergies Allergies/Adverse Reactions: Allergies Allergy/AdvReac Type Severity Reaction Status Date / Time No Known Allergies Allergy Verified 05/13/20 18:46 - Blood Blood Available: No Product(s) Available: None - Anesthesia Plan Pre-Op Medication Ordered: None - Acknowledgements Anesthesia Type Planned: MAC Pt an Appropriate Candidate for the Planned Anesthesia: Yes Alternatives and Risks of Anesthesia Discussed w Pt/Guardian: Yes Pt/Guardian Understands and Agrees with Anesthesia Plan: Yes PreAnesthesia Questionnaire HEENT History: Reports: Impaired Vision Cardiovascular History: Reports: Hypertension Respiratory History: Reports: Pneumonia, Recurrent Gastrointestinal History: Reports: None Genitourinary History: Reports: Urinary Incontinence (stress incontinence) LAPPER History: Reports: None Musculoskeletal History: Reports: Back Pain, Chronic Neurological History: Reports: TIA (2019) Psychiatric History: Reports: None Endocrine/Metabolic History: Reports: Obesity/BMI 30+ Hematologic History: Reports: None Immunologic History: Reports: None Oncologic (Cancer) History: Reports: None Dermatologic History: Reports: None - Infectious Disease History Infectious Disease History: Reports: None - Past Surgical History HEENT Surgical History: Reports: Adenoidectomy, Oral Surgery (dental extractions), Tonsillectomy Female Surgical History: Reports: D&C (x 1) - SUBSTANCE USE Tobacco Use Status *Q: Never Tobacco User Tobacco Use Within Last Twelve Months: No Second Hand Smoke Exposure: No Days Per Week of Alcohol Use: 0 Number of Drinks Per Day: 0 Total Drinks Per Week: 0 Recreational Drug Use History: No - HOME MEDS Home Medications: Home Meds Aspirin [Halfprin] 81 mg PO DAILY #100 tab.ec 01/03/19 [Rx] Clopidogrel [Plavix] 75 mg PO DAILY #21 tablet 01/03/19 [Rx] Rosuvastatin [Crestor] 10 mg PO DAILY #30 tab 01/03/19 [Rx] amLODIPine Besylate [Norvasc] 10 mg PO DAILY #30 tablet 01/03/19 [Rx] - CURRENT (IN HOUSE) MEDS Current Meds: Current Medications Sodium Chloride (Normal Saline) 1,000 mls @ 150 mls/hr IV ASDIRECTED [facility] Last Admin: 05/13/20 20:28 Dose: 150 mls/hr Documented by: Discontinued Medications Hydromorphone HCl (Dilaudid) 1 mg IVPUSH ONETIME ONE Stop: 05/13/20 20:19 Last Admin: 05/13/20 20:29 Dose: 1 mg Documented by: Ondansetron HCl (Zofran) 4 mg IVPUSH ONETIME ONE Stop: 05/13/20 20:19 Last Admin: 05/13/20 20:29 Dose: 4 mg Documented by:
[2020-05-13] MEDS ORDERED: Midazolam 1 MG/ML 2 ML SDV ONE (20:56)
[2020-05-13] MEDS ORDERED: Propofol 200 MG/20 ML SDV ONE (20:56)
--- NOTE | 2020-05-14 08:57 | CR ---
Left shoulder: 3 views left shoulder were obtained. Comparison: No previous shoulder study is available. Anterior dislocated shoulder is seen. No definite fracture or other abnormality is appreciated. Impression: 1. Anterior dislocated left shoulder. Diagnostic code #3
--- NOTE | 2020-05-14 08:58 | CR ---
Left shoulder: 2 views of the left shoulder were obtained. Comparison: Prior shoulder study performed earlier on the same day (8:07 PM). Previous dislocation has been reduced. There is slight narrowing of the distance between the humeral head and acromion process and is difficult to exclude a rotator cuff tear. No acute osseous abnormality is seen. Impression: 1. Reduced shoulder dislocation. 2. Questionable chronic rotator cuff tear. Diagnostic code #3
== END 2020-05-13 22:55 | disposition home or self-care (01) ==
LOC: JD.ED 18:32
DX: S43.005A Unspecified dislocation of left shoulder joint, initial encounter (principal); I10 Essential (primary) hypertension; E66.9 Obesity, unspecified; Z68.34 Body mass index [BMI] 34.0-34.9, adult; Z86.73 Personal history of transient ischemic attack (TIA), and cerebral infarction without residual deficits; Z79.82 Long term (current) use of aspirin; Z79.02 Long term (current) use of antithrombotics/antiplatelets; Z79.899 Other long term (current) drug therapy; W01.0XXA Fall on same level from slipping, tripping and stumbling without subsequent striking against object, initial encounter; Y92.009 Unspecified place in unspecified non-institutional (private) residence as the place of occurrence of the external cause
CPT/HCPCS: 23650; 73030; 96374; 96375; 99283; J1170; J2250; J2405; J2704; J7030; 01620; 23655

== ENCOUNTER 2023-04-16 14:23 | Emergency (ER) | payer MEDICARE, BC ==
[2023-04-16 14:58] LABS: BASOPHILS PERCENT AUTO 0.4 % (0.0-1.0); EOSINOPHILS PERCENT AUTO 0.2 % (0.0-6.0); HEMATOCRIT 46.7 % (37.0-47.0); HEMOGLOBIN 15.2 gm/dl (12.0-16.0); IMMATURE GRAN ABSOLUTE AUTO 0.01 K/mm3 (0.00-0.05); IMMATURE GRAN PERCENT AUTO 0.2 % (0.0-0.4); LYMPHOCYTES ABSOLUTE AUTO 1.8 K/mm3 (1.0-4.8); LYMPHOCYTES PERCENT AUTO 35.8 % (24.0-44.0); MEAN CORPUSCULAR HEMOGLOBIN 25.6 pg (28.0-32.0); MEAN CORPUSCULAR HGB CONC 32.5 g/dl (32.0-36.0); MEAN CORPUSCULAR VOLUME 78.6 fl (83.0-99.0); MEAN PLATELET VOLUME 9.7 fl (9.4-12.3); MONOCYTES ABSOLUTE AUTO 1.1 K/mm3 (0.0-0.8); MONOCYTES PERCENT AUTO 20.8 % (0.0-8.0); NEUTROPHILS ABSOLUTE AUTO 2.2 K/mm3 (1.8-7.7); NEUTROPHILS PERCENT AUTO 42.6 % (41.0-71.0); PLATELET COUNT,PLT 97 K/mm3 (150-400); RED BLOOD CELL COUNT 5.94 M/mm3 (4.10-5.30); WHITE BLOOD CELL COUNT,WBC 5.06 K/mm3 (3.9-11.3)
[2023-04-16 15:13] LABS: A/G RATIO 0.9 (1-2); ALBUMIN 3.2 g/dl (3.4-5.0); ANION GAP 15.9 (5-15); BILIRUBIN TOTAL 0.8 mg/dL (0.2-1.0); BUN/CREATININE RATIO 19.4 (14-18); CALCIUM 9.8 mg/dL (8.5-10.1); CREATININE 1.8 mg/dL (0.55-1.02); EST CRCL DRUG DOSING (CG) 24.5 mL/min; MAGNESIUM 1.9 mg/dL (1.8-2.4); POTASSIUM,K 3.9 mEq/L (3.5-5.1); PROTEIN TOTAL,TP 6.8 g/dl (6.4-8.2)
[2023-04-16] MEDS ORDERED: Sodium Chloride 0.9% 1,000 ML IV SCH (16:00)
[2023-04-16 16:05] LABS: BILIRUBIN,URINE NEGATIVE (Negative); COLOR,URINE YELLOW (Yellow); GLUCOSE,URINE NEGATIVE (Negative); KETONES,URINE 1+ (Negative); LEUKOCYTE ESTERASE,URINE 2+ (Negative); NITRITE,URINE POSITIVE (Negative); OCCULT BLOOD,URINE TRACE-INTACT (Negative); PH,URINE 5.5 (5.0-8.0); PROTEIN,URINE TRACE (Negative); UROBILINOGEN,URINE 0.2 (0.2-1.0)
[2023-04-16 16:27] LABS: APPEARANCE,URINE SLT CLOUDY (Clear)
[2023-04-16 16:28] LABS: BACTERIA,URINE MANY /hpf (FEW); MUCUS,URINE FEW /hpf (FEW); WBC,URINE 40-50 /hpf (0-5)
[2023-04-16 17:21] LABS: CORONAVIRUS COVID-19 NAA POSITIVE (NEGATIVE); INFLUENZA A NAA NEGATIVE (NEGATIVE); RESPIRATORY SYNCYTIAL VIR NAA NEGATIVE (NEGATIVE)
== END 2023-04-16 18:02 | disposition home or self-care (01) ==
LOC: JD.ED 14:23
DX: U07.1 COVID-19 (principal); N30.01 Acute cystitis with hematuria; I10 Essential (primary) hypertension; E66.9 Obesity, unspecified; Z68.30 Body mass index [BMI] 30.0-30.9, adult; Z77.22 Contact with and (suspected) exposure to environmental tobacco smoke (acute) (chronic); Z79.82 Long term (current) use of aspirin; Z79.02 Long term (current) use of antithrombotics/antiplatelets; Z79.899 Other long term (current) drug therapy
CPT/HCPCS: 0241U; 36415; 70450; 70450-26; 80053; 81001; 83735; 85025; 87086; 87088; 87186; 93005; 93010; 99284; 99285

== ENCOUNTER 2024-07-29 19:48 | Inpatient (IN) | payer BC, MEDICARE ==
[2024-07-29] MEDS: Sodium Chloride 0.9% 500 ML IV ONE (20:18)
[2024-07-29] MEDS: Sodium Chloride 0.9% 10 ML Syringe FLUSH PRN (20:18)
[2024-07-29 20:51] LABS: BASOPHILS PERCENT AUTO 0.2 % (0.0-1.0); EOSINOPHILS ABSOLUTE AUTO 0.1 K/mm3 (0.0-0.4); EOSINOPHILS PERCENT AUTO 0.6 % (0.0-6.0); HEMATOCRIT 49.8 % (37.0-47.0); HEMOGLOBIN 16.2 gm/dl (12.0-16.0); IMMATURE GRAN ABSOLUTE AUTO 0.04 K/mm3 (0.00-0.05); IMMATURE GRAN PERCENT AUTO 0.3 % (0.0-0.4); LYMPHOCYTES ABSOLUTE AUTO 1.4 K/mm3 (1.0-4.8); LYMPHOCYTES PERCENT AUTO 10.8 % (24.0-44.0); MEAN CORPUSCULAR HEMOGLOBIN 25.8 pg (28.0-32.0); MEAN CORPUSCULAR HGB CONC 32.5 g/dl (32.0-36.0); MEAN CORPUSCULAR VOLUME 79.4 fl (83.0-99.0); MEAN PLATELET VOLUME 9.4 fl (9.4-12.3); MONOCYTES ABSOLUTE AUTO 1.1 K/mm3 (0.0-0.8); MONOCYTES PERCENT AUTO 8.4 % (0.0-8.0); NEUTROPHILS ABSOLUTE AUTO 10.3 K/mm3 (1.8-7.7); NEUTROPHILS PERCENT AUTO 79.7 % (41.0-71.0); PLATELET COUNT,PLT 141 K/mm3 (150-400); RED BLOOD CELL COUNT 6.27 M/mm3 (4.10-5.30); WHITE BLOOD CELL COUNT,WBC 12.89 K/mm3 (3.9-11.3)
[2024-07-29 21:21] LABS: A/G RATIO 0.9 (1-2); ALBUMIN 3.3 g/dl (3.4-5.0); ANION GAP 10.8 (5-15); BILIRUBIN TOTAL 1.4 mg/dL (0.2-1.0); CALCIUM 9.9 mg/dL (8.5-10.1); CREATININE 1.2 mg/dL (0.55-1.02); EST CRCL DRUG DOSING (CG) 36.17 mL/min; MAGNESIUM 1.7 mg/dL (1.8-2.4); POTASSIUM,K 3.8 mEq/L (3.5-5.1); PROTEIN TOTAL,TP 6.9 g/dl (6.4-8.2); TSH 3.174 uIU/mL (0.358-3.74)
[2024-07-29 21:51] LABS: APPEARANCE,URINE SLT CLOUDY (Clear); BILIRUBIN,URINE NEGATIVE (Negative); COLOR,URINE LIGHT YELLOW (Yellow); GLUCOSE,URINE NEGATIVE (Negative); KETONES,URINE 2+ (Negative); LEUKOCYTE ESTERASE,URINE 2+ (Negative); NITRITE,URINE POSITIVE (Negative); OCCULT BLOOD,URINE 1+ (Negative); PH,URINE 6.5 (5.0-8.0); PROTEIN,URINE NEGATIVE (Negative); UROBILINOGEN,URINE 0.2 (0.2-1.0)
[2024-07-29 21:57] LABS: BACTERIA,URINE MANY /hpf (FEW); MUCUS,URINE FEW /hpf (FEW); SQUAMOUS EPITHELIAL CELLS,UR 0-5 /hpf (0-5); WBC,URINE 50-75 /hpf (0-5)
[2024-07-30] MEDS: cefTRIAXone 1 GM Vial IVPUSH ONE (02:48)
[2024-07-30] MEDS: Sodium Chloride 0.9% 500 ML IV ONE (02:48)
[2024-07-30 03:29] LABS: LACTIC ACID 0.8 mmol/L (0.4-2.0)
[2024-07-30] MEDS ORDERED: Acetaminophen 325 MG Tab PO PRN (08:34)
[2024-07-30] MEDS ORDERED: Sodium Chloride 0.9% 1,000 ML IV SCH (10:35)
[2024-07-30 14:50] LABS: INR 1.1; PROTHROMBIN TIME 11.6 SECONDS (9.7-12.0)
[2024-07-30] MEDS: Carvedilol 3.125 MG Tab PO SCH (18:07)
[2024-07-31] MEDS: cefTRIAXone 1 GM Vial IVPUSH SCH (02:15)
[2024-07-31 05:45] LABS: BASOPHILS ABSOLUTE AUTO 0.1 K/mm3 (0.0-0.2); BASOPHILS PERCENT AUTO 0.6 % (0.0-1.0); EOSINOPHILS ABSOLUTE AUTO 0.3 K/mm3 (0.0-0.4); EOSINOPHILS PERCENT AUTO 3.3 % (0.0-6.0); HEMATOCRIT 44.7 % (37.0-47.0); IMMATURE GRAN ABSOLUTE AUTO 0.05 K/mm3 (0.00-0.05); IMMATURE GRAN PERCENT AUTO 0.6 % (0.0-0.4); LYMPHOCYTES ABSOLUTE AUTO 2.4 K/mm3 (1.0-4.8); LYMPHOCYTES PERCENT AUTO 31.1 % (24.0-44.0); MEAN CORPUSCULAR HEMOGLOBIN 25.9 pg (28.0-32.0); MEAN CORPUSCULAR HGB CONC 32.4 g/dl (32.0-36.0); MEAN PLATELET VOLUME 9.4 fl (9.4-12.3); MONOCYTES PERCENT AUTO 13.1 % (0.0-8.0); NEUTROPHILS PERCENT AUTO 51.3 % (41.0-71.0); PLATELET COUNT,PLT 147 K/mm3 (150-400); RED BLOOD CELL COUNT 5.59 M/mm3 (4.10-5.30); WHITE BLOOD CELL COUNT,WBC 7.84 K/mm3 (3.9-11.3)
[2024-07-31 05:50] LABS: HEMOGLOBIN 14.5 gm/dl (12.0-16.0)
[2024-07-31 06:04] LABS: A/G RATIO 0.8 (1-2); ALBUMIN 2.5 g/dl (3.4-5.0); ANION GAP 8.7 (5-15); BILIRUBIN TOTAL 0.6 mg/dL (0.2-1.0); BUN/CREATININE RATIO 17.3 (14-18); CALCIUM 9.1 mg/dL (8.5-10.1); CREATININE 1.1 mg/dL (0.55-1.02); EST CRCL DRUG DOSING (CG) 39.46 mL/min; POTASSIUM,K 3.7 mEq/L (3.5-5.1); PROTEIN TOTAL,TP 5.7 g/dl (6.4-8.2)
[2024-07-31] MEDS: Enoxaparin 40 MG/0.4 ML Syringe SUBCUT SCH (08:10)
[2024-07-31] MEDS: Potassium Chloride 20 MEQ Tab.ER PO ONE (10:11)
== END 2024-07-31 13:23 | disposition home or self-care (01) | DRG 872 ==
LOC: JD.ED 19:48 → JD.MS 07-30 08:34 → JD.ED 07-30 09:49
PROVIDERS: ADMIT Family Medicine; ATTEND Student in an Organized Health Care Education/Training Program
DX: A41.51 Sepsis due to Escherichia coli [E. coli] (principal); N39.0 Urinary tract infection, site not specified; R26.9 Unspecified abnormalities of gait and mobility; H54.7 Unspecified visual loss; I10 Essential (primary) hypertension; Z68.33 Body mass index [BMI] 33.0-33.9, adult; M54.9 Dorsalgia, unspecified; G89.29 Other chronic pain; E66.9 Obesity, unspecified; E86.0 Dehydration; W19.XXXA Unspecified fall, initial encounter; R79.89 Other specified abnormal findings of blood chemistry; Z79.899 Other long term (current) drug therapy; Z86.73 Personal history of transient ischemic attack (TIA), and cerebral infarction without residual deficits; Z87.891 Personal history of nicotine dependence; Z98.890 Other specified postprocedural states; Z90.49 Acquired absence of other specified parts of digestive tract
CPT/HCPCS: 36415 ×2; 70450; 71045; 72125; 72170; 73030; 80053; 81001; 82550; 83605; 83735; 83880; 84443; 84484; 85025; 85610; 86140; 87040 ×2; 87086; 87428; 93005; 96361 ×2; 96374; 99285; J0696; J7030 ×2; 87088; 87186; 97116-GP; 97161-GP; A9270-GY; J1650